=== PATIENT | female | born 1955 | race Hispanic/Latino ===

== ENCOUNTER → 2019-03-22 17:15 | Outpatient (CLI) | payer OTHER, SELFPAY ==
--- NOTE | 2019-03-22 | DI.RAD.S_ITS ---
PROCEDURE: XR KNEE LT 1TO2V INDICATIONS: Knee Pain TECHNIQUE: 2 views of the knee were acquired. COMPARISON: None. FINDINGS: Bones: No fractures or dislocations, but there is a mild degree of medial compartment joint space narrowing consistent with mild osteoarthritis as the underlying cause. No suspicious bony lesions. Soft tissues: No joint effusion. No suspicious soft tissue calcifications. IMPRESSION: Mild osteoarthritis medial compartment with joint space narrowing, but without osteophytic spurring or effusion, or loose body. Dictated by: Abdullahi Xavier M.D. on 03/23/2019 at 10:55 Approved by: Abdullahi Xavier M.D. on 03/23/2019 at 10:55
--- NOTE | 2019-03-22 | DI.RAD.S_ITS ---
PROCEDURE: XR KNEE RT 1TO2V INDICATIONS: Knee Pain TECHNIQUE: A set of 2 views of the knee were acquired. COMPARISON: [facility], CR, XR KNEE LT 1TO2V, 03/22/2019, 17:29. FINDINGS: Bones: No fractures or dislocations. No suspicious bony lesions. There is a mild degree of medial compartment joint space narrowing as was seen on the left also, to a similar degree. Overall, no effusion or loose body found. Soft tissues: No joint effusion. No suspicious soft tissue calcifications. 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 Dictated by: Abdullahi Xavier M.D. on 03/23/2019 at 10:55 Approved by: Abdullahi Xavier M.D. on 03/23/2019 at 10:56
== END ==
DX: M25.561 Pain in right knee (principal); M25.562 Pain in left knee; M17.0 Bilateral primary osteoarthritis of knee
CPT/HCPCS: 73560